=== PATIENT | female | born 1955 | race Caucasian/White ===

== ENCOUNTER 2022-09-04 08:44 | Observation (INO) ==
--- NOTE | 2022-09-04 08:56 | Emergency Department Note ---
HPI General Chief complaint: Recheck/Abnormal Lab/Rx Stated complaint: Infection in right hand Time Seen by Provider: 09/04/22 08:48 Mode of arrival: ambulatory History of Present Illness HPI Narrative: Narrative: Patient is a 67-year-old female with no significant medical history who presents to the emergency department due to concern for spread of cellulitis. Patient was seen yesterday by Dr. Ricks and was diagnosed with cellulitis. She was given a dose of ceftriaxone in the emergency department and given a prescription for cephalexin. She has taken 3 doses to this point. She states that she began to have spread of the redness of the wrist and streaking up the arm, so decided to come to the emergency department for evaluation. She states that she did have some streaking up the arm yesterday, but that the redness has spread around this area of streaking. She has also had spreading of the redness from the hand to the wrist and forearm. She endorses worsening swelling, and is concerned that there is something that needs to be drained in her hand due to the amount of swelling that she has had. She states that yesterday her fingers were very cold, and that this has improved. She endorses lightheadedness and chills. She denies any other symptoms at this time. Related Data Home Medications Medication Instructions Recorded Confirmed aspirin 325 mg tablet (Lite Coat 325 mg PO DAILY 11/10/16 09/02/22 Aspirin) multivitamin (One Daily Essential 1 ea PO DAILY 11/10/16 09/02/22 tablet) losartan 100 mg tablet 100 mg PO QDAY 11/14/21 09/02/22 betamethasone dipropionate 0.05 % 1 applic topical QDAY 09/02/22 09/02/22 topical ointment triamcinolone acetonide 0.1 % 1 applic topical QDAY 09/02/22 09/02/22 topical cream Previous Rx's Medication Instructions Recorded betamethasone dipropionate 0.05 % 1 applic topical BID PRN rash #45 09/02/22 topical cream grams cephalexin 500 mg capsule 500 mg PO TID 10 days #30 caps 09/03/22 Allergies Allergy/AdvReac Type Severity Reaction Status Date / Time Penicillins [PENICILLINS] Allergy Intermediate HIVES Verified 09/03/22 07:32 codeine [CODEINE] AdvReac Intermediate Nausea/Vomi Verified 09/03/22 07:32 ting oxycodone [OXYCODONE] AdvReac Intermediate Nausea/Vomi Verified 09/03/22 07:32 ting Review of Systems ROS ROS Narrative: Narrative: Constitutional: Denies fever or weakness Eyes: Denies eye pain or vision change ENT ED: Denies throat pain, hearing loss or rhinorrhea Cardiovascular: Denies chest pain, dyspnea on exertion, orthopnea or edema Respiratory: Denies shortness of breath or cough Gastrointestinal: Denies abdominal pain, nausea, vomiting, diarrhea, constipation, hematochezia or melena Musculoskeletal: Denies back pain or myalgia Integumentary: Denies rash or lesions Neurological: Denies headache, weakness, numbness, confusion, abnormal gait or dizziness Psychiatric: Denies anxiety, suicidal thoughts or homicidal thoughts Endocrine: Denies fatigue or polyuria Hematological/Lymphatic: Denies easy bleeding or easy bruising PFSH Narrative Patient History Narrative: Narrative: Medical/Surgical/Family History All Active Problems (Updated 09/04/22 @ 10:41 by Chad Adair MD) Cellulitis of hand, right (Acute) Cellulitis (Acute) Lymphangitis (Acute) Right ankle sprain (Acute) Left rib fracture (Acute) Fall (Acute) Medical History Right ankle sprain Social History Smoking Status: Never smoker Exam Narrative Narrative: Narrative: General General appearance: Present alert and in no apparent distress; Absent anxious, appears intoxicated or sleepy Head Head: Present normocephalic; Absent atraumatic Eye Eye: Present PERRL, EOMI and visual dong intact; Absent scleral icterus or nystagmus ENT ENT: Present mucous membranes moist; Absent nasal congestion Neck Neck: Present full ROM; Absent tenderness Chest Chest: Present normal inspection, symmetric chest wall rise and tenderness Respiratory Respiratory: Present normal lung sounds bilaterally; Absent respiratory distress or accessory muscle use Cardiovascular Cardiovascular: Present regular rate, normal rhythm and normal heart sounds Adbominal Abdominal: Present soft and normal bowel sounds; Absent distention or tenderness Extremities Extremities: Present normal inspection and full ROM; Absent tenderness Back Back: Present normal inspection and full ROM; Absent tenderness Neurological Neurological: Present alert, oriented X3, CN II-XII intact, normal gait and reflexes normal; Absent motor sensory deficit Psychiatric Psychiatric: Present normal affect and normal mood Skin Skin: Present warm (WNL), dry and normal color Course Vital Signs Vital signs: Vital Signs Temperature 98.8 F 09/04/22 08:52 Pulse Rate 92 H 09/04/22 08:52 Respiratory Rate 18 09/04/22 08:52 Blood Pressure 145/93 09/04/22 08:52 Pulse Oximetry (%) 99 09/04/22 08:52 Oxygen Delivery Method 09/04/22 08:52 Temperature 98.8 F 09/04/22 08:52 Pulse Rate 92 H 09/04/22 08:52 Respiratory Rate 18 09/04/22 08:52 Blood Pressure 145/93 09/04/22 08:52 Pulse Oximetry (%) 99 09/04/22 08:52 Oxygen Delivery Method 09/04/22 08:52 MDM MDM Narrative Medical decision making narrative: Narrative: Patient is a 67-year-old female who presents to the emergency department due to concern for worsening cellulitis. Patient has received antibiotics for a 24- hour period, so it is possible that patient would not have had improvement due to only a short period of antibiotic therapy, but patient should not have had worsening. Bedside ultrasound was performed with no findings consistent with abscess at this time. She did have cobblestoning consistent with cellulitis. Given lightheadedness, chills, and spreading of erythema and worsening swelling there is concern for sepsis secondary to her infection. It is possible that the antibiotic that patient received was not adequate or did not cover the bacteria causing her infection. Labs are significant for a BUN to creatinine ratio greater than 20-1. She is receiving fluids. Patient's CBC demonstrates a leukocytosis. IV antibiotics, procalcitonin, and CG 4 have been ordered. Due to patient meeting SIRS criteria with worsened cellulitis despite outpatient therapy I will speak to Dr. Carias about admission. I spoken to Dr. Eaton who is agreed to see and evaluate patient for admission. Lab Data Result diagrams: 09/04/22 09:18 Labs: Lab Results 09/04/22 09/04/22 09/04/22 Range/Units 09:18 09:22 10:34 WBC 16.3 H (4.5-11.0) K/mcL RBC 3.91 (3.59-5.38) M/mcL Hgb 13.0 (11.2-15.7) g/dL Hct 39.0 (34.1-44.9) % POC Hct 41.0 (36-48) MCV 99.7 (80.0-100.0) fL MCH 33.2 (26.0-34.0) pg MCHC 33.3 (31.0-36.0) g/dL RDW 12.5 (11.5-14.5) % Plt Count 217 (140-440) K/mcL MPV 9.2 (8.8-12.5) fL Immature Gran % (Auto) 0.7 H (0.0-0.5) % Neut % (Auto) 91.0 H (38.0-78.0) % Lymph % (Auto) 2.4 L (15.5-49.0) % [place] % (Auto) 3.6 (1.0-12.0) % Eos % (Auto) 2.1 (0.0-7.0) % Baso % (Auto) 0.2 (0.0-2.0) % Lymph # (Auto) 0.40 L (1.50-4.80) K/mcL [place] # (Auto) 0.58 (0.10-0.90) K/mcL Eos # (Auto) 0.34 (0.00-0.70) K/mcL Baso # (Auto) 0.04 (0.00-0.30) K/mcL Immature Gran # 0.12 H (0.00-0.05) K/mcl Absolute Neutrophils 14.85 H (1.80-8.00) K/mcL POC VBG pH 7.42 (7.32-7.42) POC VBG pCO2 at Temp 34.9 L (41-51) POC VBG pO2 58 H (25-40) POC VBG HCO3 22.4 L (24-28) POC VBG Total CO2 23.0 L (25-29) POC Venous O2 Sat 90.0 H (40-70) POC VBG Base Excess -2.0 (-2-2) VBG Lactic Acid 0.8 (0.5-2) POC Sodium 136 (133-145) POC Potassium 3.4 (3.3-5.1) POC Chloride 99 (96-108) POC Total CO2 27.0 (22-30) POC BUN 24 H (6-20) POC Creatinine 0.8 (0.6-1.2) POC Glucose 122 H (70-105) POC WB Ioniz Calcium 1.13 L (1.16-1.32) Discharge Plan Patient/Caregiver Discharge Instructions Pt seen by OFFICE SUPPORT ASSISTANT/PA only: No Clinical Impression: Cellulitis, Lymphangitis Patient Disposition: Xfer As Inpt ([facility]) Follow up with: Zafar Magana DO [Primary Care Provider] - Prescriptions: No Action betamethasone dipropionate 0.05 % ointment 1 applic topical QDAY triamcinolone acetonide 0.1 % cream 1 applic topical QDAY betamethasone dipropionate 0.05 % cream 1 applic topical BID PRN (Reason: rash) Qty: 45 1RF multivitamin [One Daily Essential] 1 EACH tablet 1 ea PO DAILY aspirin [Lite Coat Aspirin] 325 MG tablet 325 mg PO DAILY losartan 100 mg Tablet 100 mg PO QDAY cephalexin 500 mg capsule 500 mg PO TID 10 Days Qty: 30 0RF
[2022-09-04 09:27] LABS: POC Calcium, Ionized 1.13 (1.16-1.32); POC Creatinine 0.8 (0.6-1.2); POC Potassium 3.4 (3.3-5.1)
[2022-09-04] MEDS ORDERED: LACTATED RINGERS 1,000 ML IV ONE (09:30)
[2022-09-04 09:48] LABS: Basophils # (Auto) 0.04 K/mcL (0.00-0.30); Basophils % (Auto) 0.2 % (0.0-2.0); Eosinophils # (Auto) 0.34 K/mcL (0.00-0.70); Eosinophils % (Auto) 2.1 % (0.0-7.0); Lymphocytes % (Auto) 2.4 % (15.5-49.0); Mean Cell Volume 99.7 fL (80.0-100.0); Mean Corpuscular HGB Conc 33.3 g/dL (31.0-36.0); Mean Platelet Volume 9.2 fL (8.8-12.5); Monocytes # (Auto) 0.58 K/mcL (0.10-0.90); Monocytes % (Auto) 3.6 % (1.0-12.0); Platelet Count 217 K/mcL (140-440); RBC 3.91 M/mcL (3.59-5.38); Red Cell Distribution Width 12.5 % (11.5-14.5); WBC 16.3 K/mcL (4.5-11.0)
[2022-09-04] MEDS ORDERED: cefTRIAXone 1 GM VIAL IV ONE (09:51)
[2022-09-04] MEDS ORDERED: VANCOMYCIN 1,000 MG in 0.9 % SODIUM CHLORIDE 250 ML IV ONE (09:51)
--- NOTE | 2022-09-04 10:55 | Internal Med History&Physical ---
HPI History of Present Illness Patient information: Note initiated : 09/04/22 at 10:48 am Service Date, if different from initiated Date: [] Patient: Vicky Le a 67 y/o F admitted on for Infection in right hand. Chief Complaint: [] History of present illness: Ms. Le is a 67 year old F Presents the ED with hand swelling redness and warmth. Patient states that several days ago she had an outbreak of her eczema and went to the urgent care and got a hand cream. That day she was spending all day on packing up [place] boxes. Next morning she noticed that her hand from her wrist to her fingertips was red and swollen. It was also warm and not initially painful but just noticeable pressure. She came to the ER and got IV antibiotics in the ED and sent home with cephalexin. Over the past 24 hours she feels like her swelling has significantly increased has become more warm and the redness has progressed up to about the antecubital fossa area. She denies fevers or chills. She is mildly tachycardic at 92 in the ED. Leukocytosis 16. Lactate within normal limits. Ultrasound was done in the ED which showed no abscess. Review of Systems: Pertinent positives as above. Denies headache/fever/chills/nausea/vomiting/chest or abdominal pain/cough/dyspnea/diarrhea. Remaining 10 point review of system reviewed negative PFSH PFSH All Active Problems (Updated 09/04/22 @ 10:41 by Chad Adair MD) Cellulitis of hand, right (Acute) Cellulitis (Acute) Lymphangitis (Acute) Right ankle sprain (Acute) Left rib fracture (Acute) Fall (Acute) Medical History Right ankle sprain Social History smoking status: Never smoker MEDS/ALLERGIES Home Medications and Allergies Home Medications Medication Instructions Recorded Confirmed Type aspirin 325 mg tablet (Lite Coat 325 mg PO DAILY 11/10/16 09/02/22 History Aspirin) multivitamin (One Daily Essential 1 ea PO DAILY 11/10/16 09/02/22 History tablet) losartan 100 mg tablet 100 mg PO QDAY 11/14/21 09/02/22 History betamethasone dipropionate 0.05 % 1 applic topical BID PRN rash #45 09/02/22 09/02/22 Rx topical cream grams betamethasone dipropionate 0.05 % 1 applic topical QDAY 09/02/22 09/02/22 History topical ointment triamcinolone acetonide 0.1 % 1 applic topical QDAY 09/02/22 09/02/22 History topical cream cephalexin 500 mg capsule 500 mg PO TID 10 days #30 caps 09/03/22 Rx Allergies Allergy/AdvReac Type Severity Reaction Status Date / Time Penicillins [PENICILLINS] Allergy Intermediate HIVES Verified 09/03/22 07:32 codeine [CODEINE] AdvReac Intermediate Nausea/Vomi Verified 09/03/22 07:32 ting oxycodone [OXYCODONE] AdvReac Intermediate Nausea/Vomi Verified 09/03/22 07:32 ting EXAM Constitutional Vitals: Temp Pulse Resp BP Pulse Ox O2 Del Method 98.8 F 86 18 145/93 98 09/04/22 08:52 09/04/22 10:48 09/04/22 08:52 09/04/22 08:52 09/04/22 10:48 09/04/22 08:52 Exam: General: Alert, Awake, No acute Distress Eyes/N/T: EOMI, PERRL, Head/Neck: neck supple, normocephalic atraumatic CV: RRR, No murmurs, normal s1/s2 Pulm: Clear b/l, no wheezing/rhonchi/rales Abd: soft, nontender, +BS x4 Ext: no clubbing/cyanosis/edema to LE. Right hand extending antecubital fossa is significantly swollen and warm to the touch. Swelling is worst in the hand and redness extends up the forearm. Patient unable to close fist completely. Sensations intact. Neuro: Alert, no focal deficits, moves all extremities, CN 2-12 grossly intact, symmetrical strength b/l upper/lower, sensations intact b/l upper/lower Skin: warm/dry DATA Data Completed and Pending Labs: Labs from last 24 hours 09/04/22 09/04/22 09/04/22 10:34 10:34 10:34 WBC RBC Hgb Hct POC Hct MCV MCH MCHC RDW Plt Count MPV Immature Gran % (Auto) Neut % (Auto) Lymph % (Auto) [place] % (Auto) Eos % (Auto) Baso % (Auto) Lymph # (Auto) [place] # (Auto) Eos # (Auto) Baso # (Auto) Immature Gran # Absolute Neutrophils POC VBG pH 7.42 POC VBG pCO2 at Temp 34.9 L POC VBG pO2 58 H POC VBG HCO3 22.4 L POC VBG Total CO2 23.0 L POC Venous O2 Sat 90.0 H POC VBG Base Excess -2.0 VBG Lactic Acid 0.8 POC Sodium POC Potassium POC Chloride POC Total CO2 POC BUN POC Creatinine POC Glucose POC WB Ioniz Calcium Total Bilirubin Pending Direct Bilirubin Pending AST Pending ALT Pending Alkaline Phosphatase Pending Total Protein Pending Albumin Pending Globulin Pending Procalcitonin Pending 09/04/22 09/04/22 09:22 09:18 WBC 16.3 H RBC 3.91 Hgb 13.0 Hct 39.0 POC Hct 41.0 MCV 99.7 MCH 33.2 MCHC 33.3 RDW 12.5 Plt Count 217 MPV 9.2 Immature Gran % (Auto) 0.7 H Neut % (Auto) 91.0 H Lymph % (Auto) 2.4 L [place] % (Auto) 3.6 Eos % (Auto) 2.1 Baso % (Auto) 0.2 Lymph # (Auto) 0.40 L [place] # (Auto) 0.58 Eos # (Auto) 0.34 Baso # (Auto) 0.04 Immature Gran # 0.12 H Absolute Neutrophils 14.85 H POC VBG pH POC VBG pCO2 at Temp POC VBG pO2 POC VBG HCO3 POC VBG Total CO2 POC Venous O2 Sat POC VBG Base Excess VBG Lactic Acid POC Sodium 136 POC Potassium 3.4 POC Chloride 99 POC Total CO2 27.0 POC BUN 24 H POC Creatinine 0.8 POC Glucose 122 H POC WB Ioniz Calcium 1.13 L Total Bilirubin Direct Bilirubin AST ALT Alkaline Phosphatase Total Protein Albumin Globulin Procalcitonin A/P Narrative A/P Narrative: A: *Right hand forearm cellulitis: Failed outpatient antibiotics *Sepsis (tachycardia/leukocytosis): *recent worsening of Eczema to hands: Likely source of entry *HTN: * P: -Vanco/Rocephin, clinda x48 for toxin production -outline cellulitis, and monitor -monitor cbc -s/p IVF -Continue home ARB -Homemedication reconciliation -ppx: Lovenox Time Spent With Patient Time: Total time spent is greater than 50% in coordination of care (as documented) at patient's floor/unit and/or counseling patient: Total time spent with greater than 50% in coordination of care (as documented) at patient's floor/unit and/or counseling patient:: Greater than 70 minutes
[2022-09-04 11:37] LABS: ALT/SGPT 16 U/L (<40); AST/SGOT 32 U/L (<32); Albumin 3.2 gm/dL (3.2-5.2); Alkaline Phosphatase 75 U/L (39-117); Bilirubin,Direct < 0.2 mg/dL (0-0.3); Bilirubin,Total 0.4 mg/dL (0.1-1.0); Globulin 2.6 gm/dL (2.2-3.7)
[2022-09-04] MEDS ORDERED: IOPAMIDOL 100 ML BOTTLE IV ONE (11:45)
[2022-09-04] MEDS ORDERED: HYDROcodone/APAP 5/325MG TABLET PO PRN (12:06)
[2022-09-04] MEDS ORDERED: SENNOSIDES 1 TABLET PO PRN (12:06)
[2022-09-04] MEDS ORDERED: POTASSIUM CHLORIDE 40 MEQ in DEXTROSE 5% IN WATER 500 ML IV PRN (12:06)
[2022-09-04] MEDS ORDERED: ONDANSETRON 4 MG/2 ML VIAL IV PRN (12:06)
[2022-09-04] MEDS ORDERED: POTASSIUM CHLORIDE 20 MEQ TABLET PO PRN ×2 (12:06)
[2022-09-04] MEDS ORDERED: VANCOMYCIN PER PHARMACY IV SCH (12:06)
[2022-09-04] MEDS ORDERED: MAGNESIUM SULFATE 2 GM/50 ML BAG IV PRN (12:06)
[2022-09-04] MEDS ORDERED: IPRATROPIUM/ALBUTEROL 3 ML AMPUL.NEB NEB PRN (12:06)
[2022-09-04] MEDS ORDERED: POLYETHYLENE GLYCOL 3350 17 GM PACKET PO PRN (12:06)
[2022-09-04] MEDS ORDERED: cefTRIAXone 1 GM in DEXTROSE 5% IN WATER 50 ML IV SCH (12:06)
[2022-09-04] MEDS: ACETAMINOPHEN 325 MG TABLET PO PRN ×2 (13:55→23:41)
[2022-09-04] MEDS: CLINDAMYCIN IN 0.9 % SOD CHLOR 600 MG/50 ML BAG IV SCH ×2 (13:55→22:53)
[2022-09-04] MEDS: 0.9 % SODIUM CHLORIDE 10 ML SYRINGE IV SCH ×2 (13:58→21:40)
[2022-09-04] MEDS ORDERED: traMADol 50 MG TABLET PO ONE (18:43)
[2022-09-04] MEDS: traMADol 50 MG TABLET PO PRN (18:49)
[2022-09-04] MEDS ORDERED: LOSARTAN 50 MG TABLET PO SCH (21:00)
[2022-09-04] MEDS: DOCUSATE SODIUM 100 MG CAPSULE PO SCH (21:40)
[2022-09-04] MEDS: VANCOMYCIN 1,000 MG in 0.9 % SODIUM CHLORIDE 250 ML IV SCH (21:41)
[2022-09-04] MEDS ORDERED: diphenhydrAMINE 25 MG CAPSULE ONE (23:32)
[2022-09-04] MEDS: diphenhydrAMINE 25 MG CAPSULE PO PRN (23:41)
[2022-09-05] MEDS: 0.9 % SODIUM CHLORIDE 10 ML SYRINGE IV SCH ×3 (05:28→21:34)
[2022-09-05] MEDS: CLINDAMYCIN IN 0.9 % SOD CHLOR 600 MG/50 ML BAG IV SCH ×3 (05:28→21:33)
[2022-09-05 06:50] LABS: Hematocrit 33.6 % (34.1-44.9); Mean Cell Volume 101.2 fL (80.0-100.0); Mean Corpuscular HGB Conc 32.7 g/dL (31.0-36.0); Mean Platelet Volume 9.6 fL (8.8-12.5); Platelet Count 216 K/mcL (140-440); RBC 3.32 M/mcL (3.59-5.38); Red Cell Distribution Width 12.3 % (11.5-14.5); WBC 11.2 K/mcL (4.5-11.0)
[2022-09-05] MEDS: traMADol 50 MG TABLET PO PRN ×3 (07:30→18:59)
[2022-09-05 07:36] LABS: ALT/SGPT 12 U/L (<40); AST/SGOT 19 U/L (<32); Albumin/Globulin Ratio 1.2 (1.0-2.3); Alkaline Phosphatase 80 U/L (39-117); Bilirubin,Direct < 0.2 mg/dL (0-0.3); Bilirubin,Total 0.4 mg/dL (0.1-1.0); Blood Urea Nitrogen 15 mg/dL (8-23); Calcium 8.1 mg/dL (8.6-10.4); Carbon Dioxide 22 mmol/L (22-30); Chloride 101 mmol/L (96-108); Globulin 2.6 gm/dL (2.2-3.7); Glomerular Filtration Rate 99; Glucose 80 mg/dL (70-105); Lactate Dehydrogenase 168 U/L (135-225); Phosphorous 2.7 mg/dL (2.5-4.5); Triglycerides 114 mg/dL (<150); Uric Acid 2.3 mg/dL (2.5-8.0)
[2022-09-05 07:42] LABS: Band Neutrophils % 5 % (0-10); Eosinophils % (Manual) 10 % (0-7); Lymphocytes % 3 % (15-49); Macrocytosis 1+ (None Seen); Monocytes % (Manual) 2 % (1-12); Platelet Estimate NORMAL (Normal); RBC Morphology ABNORMAL (Normal); Segmented Neutrophils % 80 % (38-78)
[2022-09-05] MEDS: cefTRIAXone 1 GM VIAL IV SCH (08:02)
[2022-09-05] MEDS: VANCOMYCIN 1,000 MG in 0.9 % SODIUM CHLORIDE 250 ML IV SCH (08:02)
[2022-09-05] MEDS: DOCUSATE SODIUM 100 MG CAPSULE PO SCH ×2 (08:02→21:32)
[2022-09-05] MEDS: ENOXAPARIN 40 MG/0.4 ML SYRINGE SQ SCH (08:03)
--- NOTE | 2022-09-05 10:13 | Internal Med Progress Note ---
SUBJECTIVE Subjective Patient information: Note initiated : 09/05/22 at 10:10 am Service Date, if different from initiated Date: [] Patient: Vicky Le a 67 y/o F admitted on 09/04/22 for Infection in right hand. Chief Complaint: [] Interval history: History of present illness: Ms. Le is a 67 year old F Presents the ED with hand swelling redness and warmth. Patient states that several days ago she had an outbreak of her eczema and went to the urgent care and got a hand cream. That day she was spending all day on packing up [employer] boxes. Next morning she noticed that her hand from her wrist to her fingertips was red and swollen. It was also warm and not initially painful but just noticeable pressure. She came to the ER and got IV antibiotics in the ED and sent home with cephalexin. Over the past 24 hours she feels like her swelling has significantly increased has become more warm and the redness has progressed up to about the antecubital fossa area. She denies fevers or chills. She is mildly tachycardic at 92 in the ED. Leukocytosis 16. Lactate within normal limits. Ultrasound was done in the ED which showed no abscess. 09/05 States she slept okay. States her hand swelling is improving. She is able to close her fingers slightly closer into a fist. Review of Systems: denies headache/fever/chills/nausea/vomiting/chest or abdominal pain/cough/dyspnea/diarrhea. Otherwise see above. Constitutional Vitals: Vital Signs Temp Pulse Resp BP Pulse Ox O2 Del Method 98.5 F 76 16 130/86 96 09/05/22 07:23 09/05/22 07:23 09/05/22 07:23 09/05/22 07:23 09/05/22 07:23 09/05/22 07:23 Period Temp Pulse Resp BP Sys/Kenny Pulse Ox O2 Del Method O2 Flow Rate Last 24 Hr 98.3 F-101.1 F 68-102 16-17 124-148/76-86 94-98 Room Air-Room Air Intake and Output 09/04/22 09/05/22 09/05/22 19:59 03:59 11:59 Intake Total 345 801 7114 Output Total 300 Balance 341 829 0674 Weight 50.893 kg Intake & Output: Intake & Output 09/04/22 09/05/22 09/05/22 19:59 03:59 11:59 Intake Total 892 023 5521 Output Total 300 Balance 564 205 1963 Weight 50.893 kg Intake: IV 300 300 300 Vancomycin 1,000 mg In Sodium 250 250 250 Chloride 0.9% 250 ml @ 250 mls/ hr IV Q12H [facility] Rx#:[id number] Oral 300 800 Output: Void Amount 300 Other: Meal Dinner Percent of Meal Consumed 75% Feeding Ability Independent Urine Appearance Clear Clear Clear Urine Color Yellow Yellow Dark Yellow Dark Yellow Urine Odor Normal Normal Exam: General: Alert, Awake, No acute Distress Eyes/N/T: EOMI, Head/Neck: neck supple, CV: RRR, No murmurs, Pulm: Clear b/l, no wheezing/rhonchi/rales Abd: soft, nontender, +BS x4 Ext: no clubbing/cyanosis/edema to LE. Right hand extending antecubital fossa swelling/redness/warmth present but improving Neuro: Alert, no focal deficits, moves all extremities, Skin: warm/dry OBJ DATA Labs CBC & Chem 7: 09/05/22 05:19 09/05/22 05:19 Labs: Abnormal Lab Results 09/05/22 09/05/22 09/05/22 05:20 05:19 05:19 WBC RBC Hgb Hct MCV Immature Gran % (Auto) Neut % (Auto) Lymph % (Auto) Lymph # (Auto) Seg Neutrophils % Lymphocytes % Eosinophils % (Manual) Immature Gran # Absolute Neutrophils RBC Morphology Macrocytosis POC VBG pCO2 at Temp POC VBG pO2 POC VBG HCO3 POC VBG Total CO2 POC Venous O2 Sat POC BUN Creatinine 0.5 L POC Glucose Uric Acid 2.3 L Calcium 8.1 L POC WB Ioniz Calcium AST C-Reactive Protein 13.60 H Total Protein 5.6 L Albumin 3.0 L Procalcitonin 0.76 H 09/05/22 09/04/22 09/04/22 05:19 12:06 10:34 WBC 11.2 H RBC 3.32 L Hgb 11.0 L Hct 33.6 L MCV 101.2 H Immature Gran % (Auto) Neut % (Auto) Lymph % (Auto) Lymph # (Auto) Seg Neutrophils % 80 H Lymphocytes % 3 L Eosinophils % (Manual) 10 H Immature Gran # Absolute Neutrophils RBC Morphology Abnormal A Macrocytosis 1+ A POC VBG pCO2 at Temp 34.9 L POC VBG pO2 58 H POC VBG HCO3 22.4 L POC VBG Total CO2 23.0 L POC Venous O2 Sat 90.0 H POC BUN Creatinine POC Glucose Uric Acid Calcium POC WB Ioniz Calcium AST C-Reactive Protein 22.40 H Total Protein Albumin Procalcitonin 09/04/22 09/04/22 09/04/22 10:34 10:34 09:22 WBC RBC Hgb Hct MCV Immature Gran % (Auto) Neut % (Auto) Lymph % (Auto) Lymph # (Auto) Seg Neutrophils % Lymphocytes % Eosinophils % (Manual) Immature Gran # Absolute Neutrophils RBC Morphology Macrocytosis POC VBG pCO2 at Temp POC VBG pO2 POC VBG HCO3 POC VBG Total CO2 POC Venous O2 Sat POC BUN 24 H Creatinine POC Glucose 122 H Uric Acid Calcium POC WB Ioniz Calcium 1.13 L AST 32 H C-Reactive Protein Total Protein 5.8 L Albumin Procalcitonin 1.02 H 09/04/22 09:18 WBC 16.3 H RBC Hgb Hct MCV Immature Gran % (Auto) 0.7 H Neut % (Auto) 91.0 H Lymph % (Auto) 2.4 L Lymph # (Auto) 0.40 L Seg Neutrophils % Lymphocytes % Eosinophils % (Manual) Immature Gran # 0.12 H Absolute Neutrophils 14.85 H RBC Morphology Macrocytosis POC VBG pCO2 at Temp POC VBG pO2 POC VBG HCO3 POC VBG Total CO2 POC Venous O2 Sat POC BUN Creatinine POC Glucose Uric Acid Calcium POC WB Ioniz Calcium AST C-Reactive Protein Total Protein Albumin Procalcitonin Meds: Medications Acetaminophen (Acetaminophen 325 Mg Tablet) 650 mg PO Q6HP PRN; Protocol PRN Reason: Per Pain Protocol/Fever > 101 Last Admin: 09/04/22 23:41 Dose: 650 mg Albuterol/Ipratropium (Ipratropium/Albuterol 3 Ml Ampul.Neb) 3 ml NEB Q4HP PRN PRN Reason: Shortness Of Breath Ceftriaxone Sodium (Ceftriaxone 1 Gm Vial) 1 gm IV Q24H [facility] Last Admin: 09/05/22 08:02 Dose: 1 gm Diphenhydramine HCl (Diphenhydramine 25 Mg Capsule) 50 mg PO HSP PRN PRN Reason: Insomnia Last Admin: 09/04/22 23:41 Dose: 50 mg Docusate Sodium (Docusate Sodium 100 Mg Capsule) 100 mg PO BID [facility] Last Admin: 09/05/22 08:02 Dose: 100 mg Enoxaparin Sodium (Enoxaparin 40 Mg/0.4 Ml Syringe) 40 mg SQ DAILY [facility] Last Admin: 09/05/22 08:03 Dose: 40 mg Potassium Chloride 40 meq/ (Dextrose) 520 mls @ 130 mls/hr IV UD PRN PRN Reason: Potassium < 3 Magnesium Sulfate (Magnesium Sulfate) 2 gm in 50 mls @ 50 mls/hr IV UD PRN PRN Reason: Magnesium </= 1.6 CLINDAMYCIN IN 0.9 % SOD CHLOR (Clindamycin 600 Mg/50 Ml-Ns) 600 mg in 50 mls @ 100 mls/hr IV Q8H [facility] Last Infusion: 09/05/22 06:06 Dose: Infused Vancomycin HCl 1,250 mg/ (Sodium Chloride) 500 mls @ 333.3 mls/hr IV Q12H [facility] Losartan Potassium (Losartan 50 Mg Tablet) 100 mg PO HS [facility] Ondansetron HCl (Ondansetron 4 Mg/2 Ml Vial) 4 mg IV Q4HP PRN PRN Reason: Nausea And Vomiting Polyethylene Glycol (Polyethylene Glycol 3350 17 Gm Packet) 17 gm PO DAILYP PRN PRN Reason: Constipation Potassium Chloride (Potassium Chloride 20 Meq Tablet) 40 meq PO UD PRN PRN Reason: Potssium is 3-3.5 Last Admin: 09/05/22 00:57 Dose: 40 meq Potassium Chloride (Potassium Chloride 20 Meq Tablet) 40 meq PO UD PRN PRN Reason: Potassium < 3 Senna (Sennosides 1 Tablet) 2 tab PO DAILYP PRN PRN Reason: Constipation Sodium Chloride (0.9 % Sodium Chloride 10 Ml Syringe) 10 ml IV Q8 [facility] Last Admin: 09/05/22 05:28 Dose: 10 ml Tramadol HCl (Tramadol 50 Mg Tablet) 50 mg PO Q6HP PRN; Protocol PRN Reason: Pain Last Admin: 09/05/22 07:30 Dose: 50 mg Vancomycin HCl (Vancomycin Per Pharmacy) 1 order IV UD [facility]; Protocol A/P Narrative A/P Narrative: A: *Right hand forearm cellulitis: Failed outpatient antibiotics -mrsa screen neg *Sepsis (tachycardia/leukocytosis): -Leukocytosis improving, PCT slightly improved. *recent worsening of Eczema to hands: Likely source of entry *HTN: P: -Vanco(d/c)/Rocephin, clinda x48 for toxin production. -outline cellulitis, and monitor -monitor cbc -Continue home ARB -ppx: Lovenox Time Spent With Patient Time: Total time spent is greater than 50% in coordination of care (as documented) at patient's floor/unit and/or counseling patient: Total time spent with greater than 50% in coordination of care (as documented) at patient's floor/unit and/or counseling patient:: 25 - 35 minutes QUALITY VTE Deep Vein Thrombosis/Pulmonary Embolism Present on Admission: No
--- NOTE | 2022-09-05 10:40 | Discharge Summary ---
Discharge Provider Provider IMPORTANT FOLLOW-UP INFORMATION FOR PCP: Patient information: Note initiated : 09/05/22 at 10:39 am Service Date, if different from initiated Date: [] Patient: Vicky Le a 67 y/o F admitted on 09/04/22 for Infection in right hand. Chief Complaint: [] Date of admission: 09/04/22 11:44 Discharge date: 09/06/22 Primary care physician: Zafar Magana Consults: 09/04/22 Consult to Physician [CONS] Stat Comment: Consulting Provider: Vishal Carias Reason For Exam: Physician to Consult COURSE Hospital Course Hospital course: History of present illness: Ms. Le is a 67 year old F Presents the ED with hand swelling redness and warmth. Patient states that several days ago she had an outbreak of her eczema and went to the urgent care and got a hand cream. That day she was spending all day on packing up [place] boxes. Next morning she noticed that her hand from her wrist to her fingertips was red and swollen. It was also warm and not initially painful but just noticeable pressure. She came to the ER and got IV antibiotics in the ED and sent home with cephalexin. Over the past 24 hours she feels like her swelling has significantly increased has become more warm and the redness has progressed up to about the antecubital fossa area. She denies fevers or chills. She is mildly tachycardic at 92 in the ED. Leukocytosis 16. Lactate within normal limits. Ultrasound was done in the ED which showed no abscess. 09/05 States she slept okay. States her hand swelling is improving. She is able to close her fingers slightly closer into a fist. 09/06 Hand forearm significantly improved except for around base of the thumb / thenar eminence. No fevers overnight. Will obtain CT of the hand to rule out any abscess formation. *CT hand no abscess or osteo-. A: *Right hand forearm cellulitis, severe: Failed outpatient antibiotics *Sepsis (tachycardia/leukocytosis): *recent worsening of Eczema to hands: Likely source of entry *HTN: P: -Abx Discharge diagnosis: Severe right hand cellulitis sepsis Time Spent with Patient Time attestation: Total time spent providing and/or coordinating discharge services: Time spent: Greater than 30 minutes EXAM Constitutional Vitals: Temp Pulse Resp BP Pulse Ox O2 Del Method 98.5 F 76 16 130/86 96 09/05/22 07:23 09/05/22 07:23 09/05/22 07:23 09/05/22 07:23 09/05/22 07:23 09/05/22 07:23 Discharge Data Data Completed and Pending Labs on day of discharge: Labs from last 24 hours 09/05/22 09/05/22 09/05/22 08:02 05:20 05:19 WBC RBC Hgb Hct MCV MCH MCHC RDW Plt Count MPV Seg Neutrophils % Band Neutrophils % Lymphocytes % Monocytes % (Manual) Eosinophils % (Manual) Platelet Estimate RBC Morphology Macrocytosis POC VBG pH POC VBG pCO2 at Temp POC VBG pO2 POC VBG HCO3 POC VBG Total CO2 POC Venous O2 Sat POC VBG Base Excess VBG Lactic Acid Sodium Potassium Chloride Carbon Dioxide Anion Gap BUN Creatinine GFR Calculation Glucose Uric Acid Calcium Phosphorus Magnesium Total Bilirubin Direct Bilirubin GGT AST ALT Alkaline Phosphatase Lactate Dehydrogenase C-Reactive Protein 13.60 H Total Protein Albumin Globulin Albumin/Globulin Ratio Triglycerides Procalcitonin 0.76 H Vancomycin Trough 7.9 09/05/22 09/05/22 09/04/22 05:19 05:19 12:06 WBC 11.2 H RBC 3.32 L Hgb 11.0 L Hct 33.6 L MCV 101.2 H MCH 33.1 MCHC 32.7 RDW 12.3 Plt Count 216 MPV 9.6 Seg Neutrophils % 80 H Band Neutrophils % 5 Lymphocytes % 3 L Monocytes % (Manual) 2 Eosinophils % (Manual) 10 H Platelet Estimate Normal RBC Morphology Abnormal A Macrocytosis 1+ A POC VBG pH POC VBG pCO2 at Temp POC VBG pO2 POC VBG HCO3 POC VBG Total CO2 POC Venous O2 Sat POC VBG Base Excess VBG Lactic Acid Sodium 135 Potassium 4.1 Chloride 101 Carbon Dioxide 22 Anion Gap 12.0 BUN 15 Creatinine 0.5 L GFR Calculation 99 Glucose 80 Uric Acid 2.3 L Calcium 8.1 L Phosphorus 2.7 Magnesium 1.9 Total Bilirubin 0.4 Direct Bilirubin < 0.2 GGT 16 AST 19 ALT 12 Alkaline Phosphatase 80 Lactate Dehydrogenase 168 C-Reactive Protein 22.40 H Total Protein 5.6 L Albumin 3.0 L Globulin 2.6 Albumin/Globulin Ratio 1.2 Triglycerides 114 Procalcitonin Vancomycin Trough 09/04/22 09/04/22 09/04/22 10:34 10:34 10:34 WBC RBC Hgb Hct MCV MCH MCHC RDW Plt Count MPV Seg Neutrophils % Band Neutrophils % Lymphocytes % Monocytes % (Manual) Eosinophils % (Manual) Platelet Estimate RBC Morphology Macrocytosis POC VBG pH 7.42 POC VBG pCO2 at Temp 34.9 L POC VBG pO2 58 H POC VBG HCO3 22.4 L POC VBG Total CO2 23.0 L POC Venous O2 Sat 90.0 H POC VBG Base Excess -2.0 VBG Lactic Acid 0.8 Sodium Potassium Chloride Carbon Dioxide Anion Gap BUN Creatinine GFR Calculation Glucose Uric Acid Calcium Phosphorus Magnesium Total Bilirubin 0.4 Direct Bilirubin < 0.2 GGT AST 32 H ALT 16 Alkaline Phosphatase 75 Lactate Dehydrogenase C-Reactive Protein Total Protein 5.8 L Albumin 3.2 Globulin 2.6 Albumin/Globulin Ratio Triglycerides Procalcitonin 1.02 H Vancomycin Trough Preliminary micro results at discharge 09/04/22 10:34 Blood Culture - Preliminary Blood 09/04/22 10:23 Blood Culture - Preliminary Blood Discharge Plan Patient/Caregiver Discharge Instructions Activity: increase activity as tolerated Diet: Regular Diet Prescriptions: New sulfamethoxazole-trimethoprim [Bactrim DS] 800-160 mg tablet 1 tab PO Q12H Qty: 14 0RF Continued multivitamin [One Daily Essential] 1 EACH tablet 1 ea PO DAILY aspirin [Lite Coat Aspirin] 325 MG tablet 325 mg PO HS losartan 100 mg Tablet 100 mg PO QHS Follow Up Plan Follow up with: Zafar Magana DO [Primary Care Provider] - Patient Disposition: Home, Self-Care Prognosis: Fair Discharge Orders: Discharge Order (Routine); Ordered 09/06/22 Ordered By: Vishal Carias [facility] VTE Deep Vein Thrombosis/Pulmonary Embolism Present on Admission: No
[2022-09-05] MEDS: ACETAMINOPHEN 325 MG TABLET PO PRN ×2 (12:07→21:32)
[2022-09-05] MEDS ORDERED: LOSARTAN 50 MG TABLET PO SCH (21:00)
[2022-09-05] MEDS ORDERED: VANCOMYCIN 1,250 MG in 0.9 % SODIUM CHLORIDE 500 ML IV SCH (21:00)
[2022-09-05] MEDS: diphenhydrAMINE 25 MG CAPSULE PO PRN (21:32)
[2022-09-06] MEDS: CLINDAMYCIN IN 0.9 % SOD CHLOR 600 MG/50 ML BAG IV SCH ×2 (05:43→13:42)
[2022-09-06] MEDS: 0.9 % SODIUM CHLORIDE 10 ML SYRINGE IV SCH ×2 (05:43→13:42)
[2022-09-06] MEDS: traMADol 50 MG TABLET PO PRN ×2 (06:06→14:21)
[2022-09-06] MEDS: DOCUSATE SODIUM 100 MG CAPSULE PO SCH (08:09)
[2022-09-06] MEDS: ENOXAPARIN 40 MG/0.4 ML SYRINGE SQ SCH (08:09)
[2022-09-06] MEDS: cefTRIAXone 1 GM VIAL IV SCH (08:10)
[2022-09-06] MEDS: ACETAMINOPHEN 325 MG TABLET PO PRN (09:07)
--- NOTE | 2022-09-06 09:10 | Internal Med Progress Note ---
SUBJECTIVE Subjective Patient information: Note initiated : 09/06/22 at 9:06 am Service Date, if different from initiated Date: [] Patient: Vicky Le a 67 y/o F admitted on 09/04/22 for Infection in right hand. Chief Complaint: [] Interval history: History of present illness: Ms. Le is a 67 year old F Presents the ED with hand swelling redness and warmth. Patient states that several days ago she had an outbreak of her eczema and went to the urgent care and got a hand cream. That day she was spending all day on packing up [place] boxes. Next morning she noticed that her hand from her wrist to her fingertips was red and swollen. It was also warm and not initially painful but just noticeable pressure. She came to the ER and got IV antibiotics in the ED and sent home with cephalexin. Over the past 24 hours she feels like her swelling has significantly increased has become more warm and the redness has progressed up to about the antecubital fossa area. She denies fevers or chills. She is mildly tachycardic at 92 in the ED. Leukocytosis 16. Lactate within normal limits. Ultrasound was done in the ED which showed no abscess. 09/05 States she slept okay. States her hand swelling is improving. She is able to close her fingers slightly closer into a fist. 09/06 Hand forearm significantly improved except for around base of the thumb / thenar eminence. No fevers overnight. Will obtain CT of the hand to rule out any abscess formation. review of Systems: denies headache/fever/chills/nausea/vomiting/chest or abdominal pain/cough/dyspnea/diarrhea. Otherwise see above. Constitutional Vitals: Vital Signs Temp Pulse Resp BP Pulse Ox O2 Del Method 98.4 F 76 14 121/66 98 09/06/22 08:00 09/06/22 08:00 09/06/22 08:00 09/06/22 08:00 09/06/22 08:00 09/06/22 08:00 Period Temp Pulse Resp BP Sys/Kenny Pulse Ox O2 Del Method O2 Flow Rate Last 24 Hr 97.8 F-98.4 F 70-81 14-18 121-147/66-97 93-98 Room Air-Room Air Intake and Output 09/05/22 09/06/22 09/06/22 19:59 03:59 11:59 Intake Total 1070 50 850 Output Total 900 1500 0 Balance 170 -1450 850 Weight 50.893 kg Intake & Output: Intake & Output 09/05/22 09/06/22 09/06/22 19:59 03:59 11:59 Intake Total 1070 50 850 Output Total 900 1500 0 Balance 170 -1450 850 Weight 50.893 kg Intake: IV 50 50 50 Oral 1020 800 Output: Void Amount 900 1500 0 Other: Meal Dinner Percent of Meal Consumed 100% Feeding Ability Independent Urine Appearance Clear Clear Clear Urine Color Yellow Yellow Yellow Dark Yellow Urine Odor Normal Normal Normal Stool Size Small Stool Color Brown Stool Consistency Normal for Patient # Voids 1 # Bowel Movements 1 Exam: General: Alert, Awake, No acute Distress Eyes/N/T: EOMI, Head/Neck: neck supple, CV: RRR, No murmurs, Pulm: Clear b/l, no wheezing/rhonchi/rales Abd: soft, nontender, +BS x4 Ext: no clubbing/cyanosis/edema to LE. Right hand extending antecubital fossa swelling/redness/warmth greatly improved except region over thenar eminence still swollen/erythema Neuro: Alert, no focal deficits, moves all extremities, Skin: warm/dry OBJ DATA Labs CBC & Chem 7: 09/05/22 05:19 09/05/22 05:19 Labs: Abnormal Lab Results 09/05/22 09/05/22 09/05/22 05:20 05:19 05:19 WBC RBC Hgb Hct MCV Immature Gran % (Auto) Neut % (Auto) Lymph % (Auto) Lymph # (Auto) Seg Neutrophils % Lymphocytes % Eosinophils % (Manual) Immature Gran # Absolute Neutrophils RBC Morphology Macrocytosis POC VBG pCO2 at Temp POC VBG pO2 POC VBG HCO3 POC VBG Total CO2 POC Venous O2 Sat POC BUN Creatinine 0.5 L POC Glucose Uric Acid 2.3 L Calcium 8.1 L POC WB Ioniz Calcium AST C-Reactive Protein 13.60 H Total Protein 5.6 L Albumin 3.0 L Procalcitonin 0.76 H 09/05/22 09/04/22 09/04/22 05:19 12:06 10:34 WBC 11.2 H RBC 3.32 L Hgb 11.0 L Hct 33.6 L MCV 101.2 H Immature Gran % (Auto) Neut % (Auto) Lymph % (Auto) Lymph # (Auto) Seg Neutrophils % 80 H Lymphocytes % 3 L Eosinophils % (Manual) 10 H Immature Gran # Absolute Neutrophils RBC Morphology Abnormal A Macrocytosis 1+ A POC VBG pCO2 at Temp 34.9 L POC VBG pO2 58 H POC VBG HCO3 22.4 L POC VBG Total CO2 23.0 L POC Venous O2 Sat 90.0 H POC BUN Creatinine POC Glucose Uric Acid Calcium POC WB Ioniz Calcium AST C-Reactive Protein 22.40 H Total Protein Albumin Procalcitonin 09/04/22 09/04/22 09/04/22 10:34 10:34 09:22 WBC RBC Hgb Hct MCV Immature Gran % (Auto) Neut % (Auto) Lymph % (Auto) Lymph # (Auto) Seg Neutrophils % Lymphocytes % Eosinophils % (Manual) Immature Gran # Absolute Neutrophils RBC Morphology Macrocytosis POC VBG pCO2 at Temp POC VBG pO2 POC VBG HCO3 POC VBG Total CO2 POC Venous O2 Sat POC BUN 24 H Creatinine POC Glucose 122 H Uric Acid Calcium POC WB Ioniz Calcium 1.13 L AST 32 H C-Reactive Protein Total Protein 5.8 L Albumin Procalcitonin 1.02 H 09/04/22 09:18 WBC 16.3 H RBC Hgb Hct MCV Immature Gran % (Auto) 0.7 H Neut % (Auto) 91.0 H Lymph % (Auto) 2.4 L Lymph # (Auto) 0.40 L Seg Neutrophils % Lymphocytes % Eosinophils % (Manual) Immature Gran # 0.12 H Absolute Neutrophils 14.85 H RBC Morphology Macrocytosis POC VBG pCO2 at Temp POC VBG pO2 POC VBG HCO3 POC VBG Total CO2 POC Venous O2 Sat POC BUN Creatinine POC Glucose Uric Acid Calcium POC WB Ioniz Calcium AST C-Reactive Protein Total Protein Albumin Procalcitonin Meds: Medications Acetaminophen (Acetaminophen 325 Mg Tablet) 650 mg PO Q6HP PRN; Protocol PRN Reason: Per Pain Protocol/Fever > 101 Last Admin: 09/05/22 21:32 Dose: 650 mg Albuterol/Ipratropium (Ipratropium/Albuterol 3 Ml Ampul.Neb) 3 ml NEB Q4HP PRN PRN Reason: Shortness Of Breath Ceftriaxone Sodium (Ceftriaxone 1 Gm Vial) 1 gm IV Q24H THOMAS Last Admin: 09/06/22 08:10 Dose: 1 gm Diphenhydramine HCl (Diphenhydramine 25 Mg Capsule) 50 mg PO HSP PRN PRN Reason: Insomnia Last Admin: 09/05/22 21:32 Dose: 50 mg Docusate Sodium (Docusate Sodium 100 Mg Capsule) 100 mg PO BID [facility] Last Admin: 09/06/22 08:09 Dose: 100 mg Enoxaparin Sodium (Enoxaparin 40 Mg/0.4 Ml Syringe) 40 mg SQ DAILY [facility] Last Admin: 09/06/22 08:09 Dose: 40 mg Potassium Chloride 40 meq/ (Dextrose) 520 mls @ 130 mls/hr IV UD PRN PRN Reason: Potassium < 3 Magnesium Sulfate (Magnesium Sulfate) 2 gm in 50 mls @ 50 mls/hr IV UD PRN PRN Reason: Magnesium </= 1.6 CLINDAMYCIN IN 0.9 % SOD CHLOR (Clindamycin 600 Mg/50 Ml-Ns) 600 mg in 50 mls @ 100 mls/hr IV Q8H [facility] Last Infusion: 09/06/22 06:28 Dose: Infused Losartan Potassium (Losartan 50 Mg Tablet) 100 mg PO HS [facility] Last Admin: 09/05/22 21:32 Dose: 100 mg Ondansetron HCl (Ondansetron 4 Mg/2 Ml Vial) 4 mg IV Q4HP PRN PRN Reason: Nausea And Vomiting Polyethylene Glycol (Polyethylene Glycol 3350 17 Gm Packet) 17 gm PO DAILYP PRN PRN Reason: Constipation Potassium Chloride (Potassium Chloride 20 Meq Tablet) 40 meq PO UD PRN PRN Reason: Potssium is 3-3.5 Last Admin: 09/05/22 00:57 Dose: 40 meq Potassium Chloride (Potassium Chloride 20 Meq Tablet) 40 meq PO UD PRN PRN Reason: Potassium < 3 Senna (Sennosides 1 Tablet) 2 tab PO DAILYP PRN PRN Reason: Constipation Sodium Chloride (0.9 % Sodium Chloride 10 Ml Syringe) 10 ml IV Q8 [facility] Last Admin: 09/06/22 05:43 Dose: 10 ml Tramadol HCl (Tramadol 50 Mg Tablet) 50 mg PO Q6HP PRN; Protocol PRN Reason: Pain Last Admin: 09/06/22 06:06 Dose: 50 mg A/P Narrative A/P Narrative: A: *Right hand forearm cellulitis: Failed outpatient antibiotics -mrsa screen neg -improving but still erythema/swelling over the right thenar eminence *Sepsis (tachycardia/leukocytosis): -Leukocytosis improving, PCT improving *recent worsening of Eczema to hands: Likely source of entry *HTN: P: -Rocephin, clinda x48 for toxin production. mrsa screen neg -outline cellulitis, and monitor -CT hand r/o abscess -monitor cbc -Continue home ARB -ppx: Lovenox Time Spent With Patient Time: Total time spent is greater than 50% in coordination of care (as documented) at patient's floor/unit and/or counseling patient: Total time spent with greater than 50% in coordination of care (as documented) at patient's floor/unit and/or counseling patient:: 25 - 35 minutes QUALITY VTE Deep Vein Thrombosis/Pulmonary Embolism Present on Admission: No
--- NOTE | 2022-09-06 14:15 | Cat Scan Report ---
CLINICAL INFORMATION: Diffuse erythema pain and swelling. Evaluate for osteomyelitis COMPARISON: None. TECHNIQUE: 0.625 mm helical slices were obtained through the right hand and wrist and following reconstruction, 2.5 mm sagittal, coronal and axial reformations were then processed. The exam was reviewed at bone and soft tissue windows. The exam was performed using radiation dose optimization techniques including, but not limited to, automated exposure control, adjustment of the mA and/or kV according to patient size and use of iterative reconstruction technique. FINDINGS: There is no evidence of osteomyelitis or other focal osseous abnormality. 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 Mild degeneration distal radioulnar joint also noted. Diffuse edema or cellulitis noted within the soft tissues most prominent in the volar region in the intertendon soft tissues. The muscle and fascial planes are lower attenuation suggesting fasciitis and myositis. IMPRESSION: Diffuse cellulitis, fasciitis and myositis. No evidence of soft tissue abscess or osteomyelitis. 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
== END 2022-09-06 14:30 | disposition home or self-care (01) ==
LOC: ED 08:44 → INTOOBSV 11:44 → MEDSUR 11:44
PROVIDERS: ADMIT Internal Medicine; ATTEND Internal Medicine